=== PATIENT | female | born 1935 | race Caucasian/White ===

== ENCOUNTER 2017-06-04 18:25 | Emergency (ER) | payer OTHER ==
[2017-06-04 18:29] VITALS: BMI 33.6
[2017-06-04] MEDS ORDERED: SODIUM CHLORIDE 1,000 ML IV STA (19:30)
--- NOTE | 2017-06-04 19:44 | PDOC ---
History of Present Illness - General History Source: Patient Exam Limitations: No Limitations - History of Present Illness Initial Comments: 06/04/17 19:47 Patient is a 82 year old female with a significant past medical history of Karel's, HTN who presents to the ED with complaints of chronic head pain that began today at 2pm. Patient reports being at home when sudden onset of headache pain began. Patient reports experiencing intermittent episodes of dizziness secondary to headache pain. Patient reports episodes of bilateral leg weakness secondary to dizziness and headache pain. Patient reports feeling like her Blood Pressure was lower throughout the day. Patient states talking to PCP Dr. castro who advised patient come into the ED for ECG. Patient states she is noncompliant with Blood Pressure medication and cholesterol medication as she states it interferes with her sleeping. She reports being on Sipiro last week for UTI. Denies chest pain, SOB. Denies nausea, vomiting. Denies trauma, loss of consciousness. Denies any other symptoms. Allergies: None Social history: No smoking. No alcohol. No illicit drugs. Surgical history: None PMD: Dr. Castro <Rocael Manrique - Last Filed: 06/04/17 20:22> - General History Source: Patient, Old Records Exam Limitations: No Limitations <John Diaz - Last Filed: 06/04/17 21:45> - General Chief Complaint: Blood Pressure Problem Stated Complaint: PCP SENT/ BLOOD PRESSURE Time Seen by Provider: 06/04/17 19:18 Past History <Rocael Manrique - Last Filed: 06/04/17 20:22> - Past Medical History Anemia: No Asthma: No Cancer: No Cardiac Disorders: Yes (HX TACHYCARDIA-FOLLOWS WITH DR. LUCAS-REMAINS ON [facility]) CVA: No COPD: No CHF: No Dementia: No Diabetes: No GI Disorders: Yes (ACID REFLUX, ALSO HX DIVERTICULITIS 3 YEARS AGO) Disorders: No (HX BLADDER INFECTIONS) HTN: Yes Hypercholesterolemia: Yes Liver Disease: No Seizures: No Thyroid Disease: Yes (KAREL'S THYROIDITIS) - Surgical History Abdominal Surgery: No Appendectomy: No Cardiac Surgery: No Cholecystectomy: No Lung Surgery: No Neurologic Surgery: No Orthopedic Surgery: Yes (RIGHT KNEE ARTHROSCOPY) - Suicide/Smoking/Psychosocial Hx Smoking History: Never smoked Have you smoked in the past 12 months: No Hx Alcohol Use: No Drug/Substance Use Hx: No Substance Use Type: None Hx Substance Use Treatment: No <John Diaz - Last Filed: 06/04/17 21:45> - Past Medical History Allergies/Adverse Reactions: Allergies Allergy/AdvReac Type Severity Reaction Status Date / Time phenazopyridine HCl Allergy Severe Low Blood Verified 06/04/17 18:29 [From AZO Standard] Pressure Home Medications: Ambulatory Orders Amlodipine Besylate [Norvasc -] 5 mg PO DAILY 06/24/15 Famotidine [Pepcid] 20 mg PO HS 06/24/15 Flecainide Acetate 50 mg PO HS 06/24/15 Levothyroxine [Synthroid -] 100 mcg PO DAILY 06/24/15 Simethicone [Phazyme] 180 mg PO DAILY PRN 06/24/15 Simvastatin [Zocor -] 20 mg PO HS 06/24/15 Trazodone HCl [Desyrel -] 25 mg PO HS PRN 06/24/15 Aspirin [ASA -] 325 mg PO DAILY tablet 06/25/15 Oxycodone HCl/Acetaminophen [Percocet 5-325 mg Tablet] 1 tab PO Q6H PRN #60 tablet 06/25/15 Review of Systems - Review of Systems Able to Perform ROS?: Yes Comments:: 06/04/17 19:47 Patient is a 82 year old female with a significant past medical history of Karel's, HTN who presents to the ED with complaints of chronic head pain that began today at 2pm. Patient reports being at home when sudden onset of headache pain began. Patient reports experiencing intermittent episodes of dizziness secondary to headache pain. Patient does not rate the intensity of the headache pain but does state it to be severe. She reports headache pain last about 5 seconds before subsiding for unknown amount of time. Patient reports episodes of bilateral leg weakness secondary to dizziness and headache pain. Patient reports feeling like her BP was lower throughout the day as well as her pulse level. Patient states talking to PCP Dr. castro who advised patient come into the ED for ECG. Patient states she is noncompliant with BP medication and cholesterol medication as she states it interferes with her sleeping. She reports being on sipiro last week for UTI. Denies chest pain, SOB. Denies nausea, vomiting. Denies any other symptoms. Allergies: None Social history: No smoking. No alcohol. No illicit drugs. Surgical history: None PMD: Dr. Castro All Other Systems: Reviewed and Negative <Rocael Manrique - Last Filed: 06/04/17 20:22> *Physical Exam - Vital Signs Last Vital Signs Temp Pulse Resp BP Pulse Ox 97.6 F 107 H 19 187/101 97 06/04/17 18:27 06/04/17 18:27 06/04/17 18:27 06/04/17 18:27 06/04/17 18:27 - Physical Exam Comments: 06/04/17 19:47 GENERAL: Awake, alert, and fully oriented, in no acute distress HEAD: No signs of trauma EYES: PERRLA, EOMI, sclera anicteric, conjunctiva clear ENT: Auricles normal inspection, hearing grossly normal, nares patent, oropharynx clear without exudates. Moist mucosa NECK: Normal ROM, supple, no lymphadenopathy, JVD, or masses LUNGS: Breath sounds equal, clear to auscultation bilaterally. No wheezes, and no crackles HEART: Regular rate and rhythm, normal S1 and S2, no murmurs, rubs or gallops ABDOMEN: Soft, nontender, normoactive bowel sounds. No guarding, no rebound. No masses EXTREMITIES: Normal range of motion, no edema. No clubbing or cyanosis. No cords, erythema, or tenderness NEUROLOGICAL: Cranial nerves II through XII grossly intact. Normal speech, SKIN: Warm, Dry, normal turgor, no rashes or lesions noted <Rocael Manrique - Last Filed: 06/04/17 20:22> - Vital Signs Last Vital Signs Temp Pulse Resp BP Pulse Ox 97.6 F 107 H 19 187/101 97 06/04/17 18:27 06/04/17 18:27 06/04/17 18:27 06/04/17 18:27 06/04/17 18:27 <John Diaz - Last Filed: 06/04/17 21:45> Heart Score/ECG Review #1 ECG reviewed & interpreted by me at: 19:50 06/04/17 20:17 NSR 93, no std/nicolas, normal axis, normal intervals, QTC 457 msec, no brugada, no HOCM, no WPW <John Diaz - Last Filed: 06/04/17 21:45> ED Treatment Course - LABORATORY CBC & Chemistry Diagram: 06/04/17 20:15 06/04/17 20:15 <BurtonRocael - Last Filed: 06/04/17 20:22> - LABORATORY CBC & Chemistry Diagram: 06/04/17 20:15 06/04/17 20:15 <John Diaz - Last Filed: 06/04/17 21:45> Medical Decision Making - Medical Decision Making 06/04/17 20:17 A portion of this note was documented by scribe services under my direction. I have reviewed the details of the note, within reason, and agree with the documentation with the following case summary and management plan written by me. Patient treated in the ED. Nursing notes are reviewed and incorporated into the medical decision-making. Vital signs reviewed. Peripheral IV access obtained by the nurse, laboratory studies are drawn and sent, reviewed and interpreted by myself. Vital Signs Temp Pulse Resp BP Pulse Ox 97.6 F 107 H 19 187/101 97 06/04/17 18:27 06/04/17 18:27 06/04/17 18:27 06/04/17 18:27 06/04/17 18:27 82-year-old female with history of thyroid disorder, hypertension, hyperlipidemia presents to the ED for dizziness and lightheadedness. The patient reports that she was fine this morning when she woke up. However, since yesterday afternoon, patient started developing intermittent several second episodes of lightheadedness and dizziness. She felt generally fatigued but denied any pain. She did have a few second episode of a tension-like headache but denied any nausea or vomiting. The headache was a moderate severity but not thunderclap in or worse headache of life. Patient reports headache since then resolved and she's been feeling well. She did note that her blood pressure is elevated when typically not. She had stated she discontinued taking her Benicar 20 mg daily several weeks ago because her blood pressures were better controlled. She did recently finish a course of ciprofloxacin for urinary tract infection but denies dysuria now. Given the lightheadedness and dizziness, we'll need to rule out infectious, cardiac, metabolic etiology. The blood pressure is elevated but may be secondary to these causes. We'll obtain a urinalysis to rule out urinary tract infection again. Blood work including troponin. EKG. At this time, given patient neurologically intact and no headache, we'll defer on head CT. The patient also wishes defer on head CT at this time. 06/04/17 21:41 CBC, BMP 06/04/17 20:15 06/04/17 20:15 CMP Sodium 137 mmol/L (136-145) 06/04/17 20:15 Potassium 3.7 mmol/L (3.5-5.1) 06/04/17 20:15 Chloride 104 mmol/L (98-107) 06/04/17 20:15 Carbon Dioxide 27 mmol/L (21-32) 06/04/17 20:15 Anion Gap 6 (8-16) L 06/04/17 20:15 BUN 22 mg/dL (7-18) H 06/04/17 20:15 Creatinine 0.7 mg/dL (0.55-1.02) 06/04/17 20:15 Creat Clearance w eGFR > 60 (>60) 06/04/17 20:15 Random Glucose 118 mg/dL (74-106) H D 06/04/17 20:15 Calcium 9.0 mg/dL (8.5-10.1) 06/04/17 20:15 Magnesium 2.1 mg/dL (1.8-2.4) 06/04/17 20:15 Total Bilirubin 0.4 mg/dL (0.2-1.0) D 06/04/17 20:15 AST 22 U/L (15-37) D 06/04/17 20:15 ALT 24 U/L (12-78) 06/04/17 20:15 Alkaline Phosphatase 88 U/L (45-117) 06/04/17 20:15 Creatine Kinase 175 IU/L (26-192) 06/04/17 20:15 Troponin I < 0.02 ng/ml (0.00-0.05) 06/04/17 20:15 Total Protein 7.7 g/dl (6.4-8.2) 06/04/17 20:15 Albumin 3.7 g/dl (3.4-5.0) 06/04/17 20:15 TSH 2.54 uIU/ml (0.358-3.74) 06/04/17 20:15 Urine Test Results Urine Color Ltyellow 06/04/17 20:20 Urine Appearance Slcloudy 06/04/17 20:20 Urine pH 6.0 (5.0-8.0) 06/04/17 20:20 Urine Protein 1+ (NEGATIVE) H 06/04/17 20:20 Urine Glucose (UA) Negative (NEGATIVE) 06/04/17 20:20 Urine Ketones Negative (NEGATIVE) 06/04/17 20:20 Urine Blood Negative (NEGATIVE) 06/04/17 20:20 Urine Nitrite Negative (NEGATIVE) 06/04/17 20:20 Urine Bilirubin Negative (NEGATIVE) 06/04/17 20:20 Urine RBC 2 /hpf (0-3) 06/04/17 20:20 Urine WBC 3 /hpf (3-5) 06/04/17 20:20 Ur Epithelial Cells Rare /hpf (FEW) 06/04/17 20:20 Urine Mucus Rare 06/04/17 20:20 Blood and urine work done shows no acute findings. Patient's repeat blood pressures 171/81 with a heart rate of 88. I had initially discussed restarting the patient back on her blood pressure medications but the patient absolutely refuses. She states that she prefers to talk with her doctor prior to initiating blood pressure medications. After lengthy discussion, I advised patient that if she has any worsening persistent symptoms that she should return to the ER for further evaluation. A copy results given to the patient. Patient wishes to go home. I discussed the physical exam findings, ancillary test results and final diagnoses with the patient. I answered all of the patient's questions. The patient was satisfied with the care received and felt comfortable with the discharge plan and treatment plan. The patient will call their primary care physician within 24 hours to arrange follow-up and will return to the Emergency Department with any new, persistant or worsening symptoms. <John Diaz - Last Filed: 06/04/17 21:45> *DC/Admit/Observation/Transfer - Attestations Scribe Attestion: 06/04/17 19:47 Documentation prepared by Rocael Manrique, acting as medical records manager for John Diaz MD, /DO. <Rocael Manrique - Last Filed: 06/04/17 20:22> - Discharge Dispostion Admit: No <John Diaz - Last Filed: 06/04/17 21:45> Diagnosis at time of Disposition: Hypertension Qualifiers: Hypertension type: essential hypertension Qualified Code(s): I10 - Essential ( primary) hypertension - Discharge Dispostion Disposition: HOME Condition at time of disposition: Stable - Referrals Referrals: Javed Castro MD [Primary Care Provider] - - Patient Instructions Printed Discharge Instructions: DI for High Blood Pressure Additional Instructions: Please bring a copy of the results to It is important that she discuss with her doctor about restarting her blood pressure medications. If he started to feel any symptoms of headache, chest pain or shortness of breath, it is very important that you return to the ER for further evaluation.
[2017-06-04 20:23] LABS: BASOPHIL 0.5 % (0-2.0); EOSINOPHIL 0.1 % (0-4.5); MCH 26.7 pg (25.7-33.7); MCHC 33.1 g/dl (32.0-36.0); MEAN CELL VOLUME 80.7 fl (80-96); NEUTROPHILS 86.2 % (42.8-82.8); PLATELET COUNT 259 K/MM3 (134-434); RDW 14.7 % (11.6-15.6); WHITE BLOOD COUNT 9.9 K/mm3 (4.0-10.0)
[2017-06-04 20:33] LABS: URINE APPEARANCE SLCLOUDY; URINE BILIRUBIN NEGATIVE (NEGATIVE); URINE BLOOD NEGATIVE (NEGATIVE); URINE COLOR LTYELLOW; URINE GLUCOSE (UA) NEGATIVE (NEGATIVE); URINE KETONE NEGATIVE (NEGATIVE); URINE LEUK ESTERASE NEGATIVE (NEGATIVE); URINE NITRITE NEGATIVE (NEGATIVE); URINE UROBILINOGEN NEGATIVE mg/dL (0.2-1.0)
[2017-06-04 20:37] LABS: URINE PROTEIN 1+ (NEGATIVE)
[2017-06-04 20:40] LABS: URINE HYALINE CAST 1 /lpf; URINE MUCUS RARE; URINE RBC 2 /hpf (0-3); URINE WBC 3 /hpf (3-5)
[2017-06-04 20:45] LABS: ALBUMIN 3.7 g/dl (3.4-5.0); ANION GAP 6 (8-16); BILIRUBIN,TOTAL 0.4 mg/dL (0.2-1.0); CO2 27 mmol/L (21-32); CREATININE 0.7 mg/dL (0.55-1.02); GLUCOSE,RANDOM 118 mg/dL (74-106); MAGNESIUM 2.1 mg/dL (1.8-2.4); SGOT/AST 22 U/L (15-37); SGPT/ALT 24 U/L (12-78); TOT PROT 7.7 g/dl (6.4-8.2)
[2017-06-04 20:53] LABS: ALK PHOS 88 U/L (45-117); CPK 175 IU/L (26-192); THYROID STIMULATING HORMONE 2.54 uIU/ml (0.358-3.74); TROPONIN I < 0.02 ng/ml (0.00-0.05)
[2017-06-04] MEDS ORDERED: IBUPROFEN 600 MG TABLET (FP) PO ONE ×2 (21:24→21:41)
[2017-06-04 21:54] VITALS: BP 171/81; PULSE 88; TEMP 97.1
--- NOTE | 2017-06-05 13:01 | EKG ---
Test Reason : Blood Pressure : / mmHG Vent. Rate : 093 BPM Atrial Rate : 093 BPM P-R Int : 144 ms QRS Dur : 084 ms QT Int : 368 ms P-R-T Axes : 032 032 071 degrees QTc Int : 457 ms NORMAL SINUS RHYTHM NONSPECIFIC ST ABNORMALITY Confirmed by JANE GALEAS MD ([id number]) on 06/05/2017 1:01:11 PM Referred By: Confirmed By:JANE GALEAS MD
== END 2017-06-04 22:06 | disposition home or self-care (01) ==
LOC: JER 18:25
PROC: 3E0337Z Introduction of Electrolytic and Water Balance Substance into Peripheral Vein, Percutaneous Approach (ICD-10-PCS; principal; 2017-06-04)
DX: I10 Essential (primary) hypertension (principal); E06.3 Autoimmune thyroiditis
CPT/HCPCS: 36415; 80053; 81003; 81015; 82553; 83735; 84443; 84484; 85025; 87086; 93005; 93010; 96360; 99283-25